=== PATIENT | male | born 1965 | race Caucasian/White ===

== ENCOUNTER 2016-11-26 06:39 | Emergency (ER) | payer BC ==
[~2016-11-26] VITALS: Ht 177.8 cm; Wt 75.9 kg
[2016-11-26 06:43] VITALS: TEMP 36.9; Ht 177.8 cm; Wt 75.9 kg
[2016-11-26] MEDS ORDERED: TRAM-10 PO (06:50)
[2016-11-26] MEDS ORDERED: IBUPROFEN 600 MG TAB PO STA (07:06)
--- NOTE | 2016-11-26 07:23 | EMERGENCY ROOM VISIT NOTE ---
History Report prepared by Keila: Taylor Ramsay Under the Supervision of: Dr. Montez Ram M.D. First contact with patient: 06:46 Chief Complaint: SORETHROAT Stated Complaint: STREP THROAT History of Present Illness The patient is a 51 year old male who presents to the Emergency Room with complaints of a constant sore throat that started two days ago in the morning. He believes that he has strep, but he states that he has not been around anyone that has strep throat. He states that his throat feels swollen and that he cannot swallow at all. The patient complains of intermittent fevers and intermittent diaphoresis. He denies any rashes. He states that he feels "out of it" and like his "brain is fried." The patient has not taken any Tylenol or Ibuprofen. Source of History: patient Onset: two days ago Position: throat Quality: other (sore) Timing: constant Associated Symptoms: + diaphoresis, + fevers, No rash Review of Systems All systems have been listed, reviewed, and are negative other than those previously mentioned. Please see Additional Medical History Sheet. Past Medical & Surgical Medical Problems: (1) Torn rotator cuff Family History Patient reports no known family medical history. Social History Smoking Status: Never Smoker Smokeless Tobacco Use: No Alcohol Use: none Housing Status: lives with family Occupation Status: employed Current/Historical Medications Scheduled Lidocaine Hcl (Mouth-Throat) (Lidocaine Viscous), 5 ML PO TID Penicillin V Potassium (Veetids), 1 TAB PO TID Scheduled PRN Ibuprofen Tab (Motrin), 600 MG PO Q6H PRN for Pain Tramadol (Ultram), 50 MG PO DIRECTED PRN for Pain Allergies Coded Allergies: No Known Allergies (Unverified , 11/26/16) Physical Exam Vital Signs Date Time Temp Pulse Resp B/P Pulse Ox O2 Delivery O2 Flow Rate FiO2 11/26/16 07:38 74 20 141/87 98 11/26/16 06:43 36.9 86 18 134/88 99 Room Air 11/26/16 06:43 99 Room Air Physical Exam GENERAL: Patient awake, alert, oriented x 3. Patient follows commands. Patient does not appear toxic. Patient is adequately hydrated and well- nourished. Patient appears to be in mild to moderate distress. SKIN: No erythema, pallor, cyanosis or rash HEENT: Normal head, pupils equal, reactive to light and accommodation. Throat has erythema and swelling, no puss. Neck: No significant cervical adenopathy, no neck vein distention. LUNGS: Clear to auscultation. No wheezes, no rales, no rhonchi. HEART: No murmurs. No gallops. No rubs EXTREMITIES: No signs of trauma or infection. No pedal or pretibial edema. No calf or thigh tenderness. NEUROLOGIC: Cranial nerves II-XII within normal limits. No gross motor sensory function deficits. Medical Decision & Procedures Laboratory Results Date/Time Source Procedure Growth Status 11/26/16 07:07 Throat Group A Streptococcus Screen - Final SPECIMEN POSITIVE FOR GROUP A BETA ST... Complete 11/26/16 07:07 Throat Group A Streptococcus Screen ([facility]) - Final Complete Medications Administered Medications (Trade) Dose Ordered Sig/Kojo Route Start Time Stop Time Status Last Admin Dose Admin Ibuprofen (Motrin Tab) 600 mg NOW STAT PO 11/26/16 07:06 11/26/16 07:08 DC 11/26/16 07:27 600 MG Penicillin V Potassium (Veetids Tab) 500 mg ONE ONCE PO 11/26/16 07:30 11/26/16 07:31 DC 11/26/16 07:28 500 MG ED Course 0700: Past medical records reviewed. The patient was evaluated in room B10. A complete history and physical examination was performed. 0706: Ordered Motrin Tab 600 mg PO. 0730: Ordered Veetids Tab 500 mg PO. 0735: Upon reevaluation, the patient appeared to have improvement of his symptoms. I discussed today's findings with the patient. He verbalized agreement of the treatment plan. The patient was discharged home. Medical Decision Differential Diagnosis includes pharyngitis viral vs bacterial, allergic reaction, peritonsillar abscess. Strep test was positive. Patient is not septic. I do not believe the patient requires further workup. The patient was started on Pen-Vee K will continue that medication at home. Impression Primary Impression: Acute streptococcal pharyngitis Scribe Attestation The scribe's documentation has been prepared under my direction and personally reviewed by me in its entirety. I confirm that the note above accurately reflects all work, treatment, procedures, and medical decision making performed by me. Departure Information Dispostion Home / Self-Care Prescriptions Lidocaine Hcl (Mouth-Throat) (LIDOCAINE VISCOUS) 2 % [place] 5 ML PO TID for 6 Days, #100 ML Prov: Montez Ram M.D. 11/26/16 Ibuprofen Tab (MOTRIN) 600 Mg Tab 600 MG PO Q6H Y for Pain, #20 TAB Prov: Montez Ram M.D. 11/26/16 Penicillin V Potassium (VEETIDS) 500 Mg Tab 1 TAB PO TID for 10 Days, #29 TAB Prov: Montez Ram M.D. 11/26/16 Referrals No Doctor, Assigned (PCP) Forms HOME CARE DOCUMENTATION FORM, IMPORTANT VISIT INFORMATION Patient Instructions ED Strep Pharyngitis [place], [facility], Penicillin V Potassium Oral tablet Additional Instructions 1 penicillin 3 times a day for 10 days. 1 tsp of lidocaine gargle and spit out every 1-2 hours as needed. Gargle with hot salt water. Throat lozenges for pain relief. 600 mg ibuprofen every 6 hours as needed for fever, aches or pain. Drink plenty of fluids.
[2016-11-26] MEDS ORDERED: PENI500T2 PO (07:28)
[2016-11-26] MEDS ORDERED: PENICILLIN V POTASSIUM 250 MG TAB PO ONE (07:30)
[2016-11-26] MEDS ORDERED: IBUP-1427 PO (07:32)
[2016-11-26] MEDS ORDERED: LIDO2SOL19 PO (07:34)
[2016-11-26 07:38] VITALS: BP 141/87; PULSE 74; O2SAT 98
== END 2016-11-26 07:40 | disposition home or self-care (01) ==
LOC: C.EDB 06:42
DX: J02.0 Streptococcal pharyngitis (principal); R50.9 Fever, unspecified; R61 Generalized hyperhidrosis; Z87.828 Personal history of other (healed) physical injury and trauma